=== PATIENT | female | born 1985 | race Hispanic/Latino ===

== ENCOUNTER 2023-02-04 21:30 | Emergency (ER) | payer BC, SELFPAY ==
[2023-02-04 21:33] VITALS: BP 137/69; PULSE 105; RESP 16; TEMP 37.3; O2SAT 96; BMI 34.3
--- NOTE | 2023-02-04 21:44 | ED.SKABFB ---
HPI - Skin/Abscess/Foreign Bdy General Chief complaint: Skin/Abscess/Foreign Body Stated complaint: Pilonidal cyst Time Seen by Provider: 02/04/23 21:43 Source: patient Mode of arrival: Ambulatory History of Present Illness HPI narrative: 29-year-old female presents from the walk-in clinic for evaluation of a pilonidal cyst. She has had them in the past and even required surgical intervention previously. She states that [place] noticed some irritation after the flight. She was seen and evaluated today and encouraged to present to the emergency department for further evaluation. She denies any systemic complaints such as dizziness, weakness or lightheadedness. She is had no fever or chills. She denies nausea, vomiting or diarrhea. She was given a prescription for Bactrim from the walk-in clinic Related Data Previous Rx's Medication Instructions Recorded sulfamethoxazole 800 1 tab PO Q12H #14 tabs 02/04/23 mg-trimethoprim 160 mg tablet (Bactrim DS) Allergies Allergy/AdvReac Type Severity Reaction Status Date / Time Penicillins Allergy Severe Anaphylaxis Verified 02/04/23 21:33 Review of Systems Review of Systems Narrative: GENERAL: Denies chills, fatigue, malaise, fever, sweats. HEENT: Denies sinus pain, ear pain, sore throat, difficulty swallowing, dizziness. RESPIRATORY: Denies dyspnea, cough, wheezing, hemoptysis, sputum. CARDIOVASCULAR: Denies chest pain, palpitations, orthopnea, edema, GASTROINTESTINAL: Denies nausea, vomiting, abdominal pain, diarrhea, constipation, melena. : Denies dysuria, frequency, incontinence, hematuria, urinary retention. MUSCULOSKELETAL: denies weakness, joint pain, or bony pain SKIN: See HPI NEUROLOGIC: Denies weakness, headache, numbness, change in speech, confusion, seizures, incoordination. PSYCHIATRIC: No concerning psychosocial issues. 12 point review of systems is negative except for those stated above Patient History Social History Smoking Status: Never smoker Smoking Status: Never smoker alcohol intake frequency: a few times a month Alcohol type: wine Substance Use Type: does not use Exam Narrative Exam Narrative: GEN: AOx3 and in mild distress EYES: Pupils are equal, round, and reactive to light and accommodation. Extraoccular muscles are intact bilaterally. There is no subconjunctival hemorrhage or exudate. CHEST: Lungs are clear to auscultation bilaterally and free of wheezes, rales, or rhonchi. Heart rate is regular rhythm, there are no murmurs, clicks, rubs, or gallops. There is no chest wall tenderness. ABD: Abdomen is soft and nontender. There is no guarding or rebound. Bowel sounds are normal in all 4 quadrants. There is no mass or organomegaly. BACK: Lower back and buttocks viewed with patient on her abdomen. Small area of erythema and tenderness noted in gluteal cleft lateral to prior surgical scar. There is minimal induration and no drainage or fluctuance. Little surrounding erythema. No indication for incision and drainage EXT: Full painless ROM of all extremities with no loss of sensation or strength. SKIN: Warm, pink, and dry. No erythema or rash Initial Vital Signs Initial Vital Signs: Vital Signs Temperature 99.1 F 02/04/23 21:33 Pulse Rate 105 H 02/04/23 21:33 Respiratory Rate 16 02/04/23 21:33 Blood Pressure 137/69 02/04/23 21:33 Pulse Oximetry 96 02/04/23 21:33 Oxygen Delivery Method Room Air 02/04/23 21:33 Course Orders Ordered: ED Orders 02/04/23 21:45 UA Complete [Urinalysis and Microscopic] Stat Urine Culture Stat Vital Signs Vital signs: Vital Signs - 8 hr 02/04/23 21:33 02/04/23 23:01 Temperature 99.1 F Pulse Rate 105 H 103 H Respiratory Rate 16 18 Blood Pressure 137/69 129/66 Pulse Oximetry 96 97 Oxygen Delivery Method Room Air Room Air MDM - Skin/Abscess/Foreign Bdy Lab Data Labs: Lab Results 02/04/23 Range/Units 21:45 Urine Color Straw Urine Appearance Clear Urine pH 6.0 (4.5-8.0) Ur Specific [place] <=1.005 (1.000-1.035) Urine Protein Negative (Negative) Urine Glucose (UA) Negative (Negative) g/dL Urine Ketones Negative (NEGATIVE) Urine Occult Blood 1+ H (Negative) Urine Nitrate Negative (Negative) Urine Bilirubin Negative (NEGATIVE) Urine Urobilinogen 0.2 (0.2) E.U./dL Ur Leukocyte Esterase Trace H (NEGATIVE) Urine RBC None seen (0-5/HPF) Urine WBC None seen (0-5/HPF) Ur Squamous Epith Cells 0-1 /hpf (0-5/HPF) Urine Bacteria None seen (None) Ur Culture Indicated? Specimen cultured Point of Care Testing Test Results Negative Urine Dip Bedside Urine Glucose Negative Bedside Urine Bilirubin - Negative Bedside Urine Ketone - Negative Urine Specific [place] 1.005 Bedside Urine Occult Blood + Bedside Urine pH 6.0 Bedside Urine Protein - Negative Bedside Urine Urobilinogen - Negative Bedside Urine Nitrite - Negative Bedside Urine Leukocytes - Negative Esterase MDM Narrative Medical decision making narrative: [37] year old patient presents with concern for pilonidal cyst Multiple etiologies for patient's symptoms considered including, but not limited to: [Infected pilonidal cyst versus abscess versus cellulitis versus other] Prior Charts reviewed in our EMR Primary Historian: patient Patient's history and physical exam is reassuring. There is evidence of early pilonidal cysts with early infection but no signs of abscess, no indication for drainage today. She is been given a prescription for antibiotics which is appropriate. She is encouraged to continue monitoring, watching for worsening symptoms which would prompt return. Findings and discharge diagnosis discussed with patient/family followed by verbalization of understanding Return precautions discussed with patient/family whom verbalize understanding of diagnosis and plan Discharge Plan Departure Patient Disposition: Home Clinical Impression: Infected pilonidal cyst Instructions: Pilonidal Cyst Activity Restrictions/Additional Instructions: *You have been diagnosed with [pilonidal cyst. As we discussed it is still early and there is no indication for drainage at this time.] *What to do: *Please continue to take your regular medications as directed. [ ] New medication prescriptions sent to your pharmacy: [ ] [ ] New medication written as a paper prescription [ ] No new medications given *Please follow up with your primary care provider in 2-3 days, call for an appointment. Let them know you were seen in the Emergency Department and that we ask that you be seen in follow up. We will electronically transmit a record of today's note if your PCP is in our system *Return to Emergency Department if you should have any new, worsening or concerning symptoms, such as [fever greater than 101 F, shaking chills, worsening pain, persistent vomiting or other bothersome symptoms] Prescriptions: No Action sulfamethoxazole-trimethoprim [Bactrim DS] 800-160 mg tablet 1 tab PO Q12H Qty: 14 0RF Referrals: Miscellaneous,Doctor, MD [Primary Care Provider] - Stand Alone Forms: Patient Portal/API
[2023-02-04 21:57] LABS: Appearance Urine UA CLEAR; Bilirubin Urine UA NEGATIVE (NEGATIVE); Glucose Urine UA NEGATIVE (Negative); Ketones Urine UA NEGATIVE (NEGATIVE); Leukocyte Esterase Urine UA TRACE (NEGATIVE); Nitrite Urine UA NEGATIVE (Negative); Occult Blood Urine UA 1+ (Negative); Protein Urine UA NEGATIVE (Negative); Specific Gravity Urine UA <=1.005 (1.000-1.035); Urobilinogen Urine UA 0.2 E.U./dL (0.2)
[2023-02-04 21:58] LABS: Color Urine UA Straw
[2023-02-04 22:05] LABS: Bacteria Urine None Seen; RBC Urine None Seen (0-5/HPF); Squamous Epithelial Cell Urine 0-1 /HPF (0-5/HPF); WBC Urine None Seen (0-5/HPF)
[2023-02-04 22:06] LABS: Culture Indicated Urine Specimen Cultured
[2023-02-04 23:01] VITALS: BP 129/66; PULSE 103; RESP 18; O2SAT 97
== END 2023-02-04 23:02 | disposition home or self-care (01) ==
PROVIDERS: Emergency Provider Emergency Medicine
DX: L05.91 Pilonidal cyst without abscess (principal)
CPT/HCPCS: 81001; 81003; 81025; 87086; 99282